=== PATIENT | female | born 1995 | race Caucasian/White ===

== ENCOUNTER 2024-12-05 13:16 | Observation (INO) ==
[2024-12-05 13:53] LABS: BASOPHILS % (AUTO) 0.5 % (0.2-1.0); EOSINOPHILS # (AUTO) 0.2 x10^3/uL (0.0-0.2); EOSINOPHILS % (AUTO) 1.6 % (0.9-2.9); HEMATOCRIT 38.9 % (36.0-47.0); HEMOGLOBIN 13.4 g/dL (12.0-16.0); LYMPHOCYTES # (AUTO) 2.4 X10^3/uL (1.3-2.9); LYMPHOCYTES % (AUTO) 24.8 % (21.0-51.0); MEAN CORPUSCULAR HEMOGLOBIN 29.9 pg (27.0-34.0); MEAN CORPUSCULAR HGB CONC 34.3 g/dL (33.0-35.0); MEAN CORPUSCULAR VOLUME 87.2 fL (80.0-100.0); MEAN PLATELET VOLUME 7.4 fL (7.4-11.0); MONOCYTES # (AUTO) 0.7 x10^3/uL (0.3-0.8); MONOCYTES % (AUTO) 7.6 % (0.0-13.0); NEUTROPHILS # (AUTO) 6.3 x10^3/uL (2.2-4.8); NEUTROPHILS % (AUTO) 65.5 % (42.0-75.0); PLATELET COUNT 274 X10^3/uL (150.0-450.0); RED BLOOD COUNT 4.47 X10^6/uL (3.5-5.4); RED CELL DISTRIBUTION WIDTH 12.8 % (11.6-16.5); WHITE BLOOD COUNT 9.6 X10^3/uL (3.6-10.0)
[2024-12-05] MEDS: ZOFRAN INJ 4 MG VIAL IVP ONE (13:53)
[2024-12-05] MEDS: MORPHINE SULFATE INJ 4 MG IVP ONE (13:55)
[2024-12-05 14:17] LABS: SERUM PREGNANCY TEST, QUAL NEGATIVE <10 mIU/mL
[2024-12-05 14:22] LABS: ALANINE AMINOTRANSFERASE 16 Units/L (12-78); ALBUMIN 3.5 g/dL (3.4-5.0); ALKALINE PHOSPHATASE 90 Units/L (46-116); ASPARTATE AMINO TRANSFERASE 12 Units/L (15-37); BLOOD UREA NITROGEN 11 mg/dL (7-18); CALCIUM 8.8 mg/dL (8.5-10.1); CARBON DIOXIDE 25.5 mmol/L (21-32); CHLORIDE 104 mmol/L (98-107); CREATININE 0.72 mg/dL (0.55-1.02); GLUCOSE 109 mg/dL (65-99); LIPASE 28 Units/L (16-77); POTASSIUM 3.2 mmol/L (3.5-5.1); SODIUM 139 mmol/L (136-145); TOTAL PROTEIN 7.2 g/dL (6.4-8.2); eGFR NON BLACK RACES > 60 (>60)
--- NOTE | 2024-12-05 14:35 | VAS ---
EXAM:UPPER EXT VENOUS, UNILATERALHISTORY:LEFT UPPER EXTREMITY PAIN;COMPARISON:None.TECHNIQUE:Left upper extremity venous Doppler ultrasound was performed using grayscale and color Doppler imaging with compression and augmentation techniques.FINDINGS:There is normal color Doppler flow within the internal jugular, subclavian, axillary, brachial, radial and ulnar vein segments. The deep vessels augment and compress normally, where appropriate. There is no DVT identified.IMPRESSION:No evidence of DVT.THIS IS AN ELECTRONICALLY VERIFIED FINAL REPORT12/05/2024 2:32 PM - Electronically signed by Jonathon Blum MD
[2024-12-05 14:53] LABS: BILIRUBIN,URINE NEGATIVE (NEGATIVE); BLOOD/HEMOGLOBIN,URINE NEGATIVE (NEGATIVE); GLUCOSE, URINE NEGATIVE (NEGATIVE); KETONES,URINE NEGATIVE (NEGATIVE); LEUKOCYTE ESTERASE ,URINE 1+ (NEGATIVE); NITRITES,URINE NEGATIVE (NEGATIVE); PROTEIN,URINE 2+ (NEGATIVE); UROBILINOGEN,URINE NORMAL (NORMAL)
--- NOTE | 2024-12-05 15:06 | CT ---
EXAMINATION:ABDOMEN/PELVIS W/O CONHISTORY:RUQ PAIN, RT FLANK PAIN;COMPARISON:None.TECHNIQUE:Contiguou s noncontrast axial CT images of the abdomen and pelvis. Images reviewed in the axial imaging plane with reformatted sagittal and coronal images.The above CT scan was done with automated exposure control and the mA and kV was adjusted to obtain quality images according to patient size.FINDINGS:The exam is limited for evaluating the organs of the abdomen and pelvis since intravenous and oral contrast were not used.The liver is enlarged measuring 22.4 by 18 by 15 cm. No focal liver lesions seen.Gallbladder minimally distended. Subtle mixed density in the gallbladder may represent biliary sludge which may be followed up with biliary ultrasound.Pancreas, spleen, adrenal glands appear intact.Kidneys normal size and position. No hydronephrosis.The abdominal aorta tapers normally.Details of the GI tract are limited since oral contrast was not used. Occasional colonic diverticuli. [id number] amount of feces. No evidence of appendicitis. Stomach contains a small amount of air and food.Urinary bladder mildly distended with urine. Uterus and adnexal regions appear intact.Osseous structures appear intact. Pulmonary bases are clear.IMPRESSION:Mild hepatomegaly.No evidence of bowel obstruction.Equivocal biliary sludge within the gallbladder which may be further assessed with a gallbladder ultrasound.No hydronephrosis.THIS IS AN ELECTRONICALLY VERIFIED FINAL REPORT12/05/2024 3:03 PM - Electronically signed by Prisca Arriaga MD
[2024-12-05 15:09] LABS: APPEARANCE,URINE SLIGHTLY HAZY (CLEAR); COLOR,URINE YELLOW (YELLOW)
[2024-12-05 15:10] LABS: BACTERIA,URINE TRACE /HPF (NEGATIVE); RBC,URINE 0-2 /HPF (0-3); SQUAMOUS EPITHELIAL CELL,UR MANY /HPF (NEGATIVE)
--- NOTE | 2024-12-05 15:51 | ED.ABDFE ---
HPI Time Seen Time Seen by Provider: 12/05/24 13:32 PCP Primary Care Physician: Carlos Cavazos Complaint Doctors Chief Complaint Comments: 29 yo F, hx of kidney stones, pre-DM, hyperlipidemia, hypothyroidism, c/o 4 days of n/v & R mid abd pain, markedly worse the past 18h. Denies other complaints. Denies fever. Denies diarrhea. Chief Complaint:: patient reports vomiting since Tuesday along with headache. reports right sided abd pain that started today. COVID-19 Coronavirus risk:travel/contact w/high risk person: No Has patient experienced Coronavirus symptoms: No Source History Provided: Patient Mode of arrival Mode of Arrival: Ambulatory Timing Onset of Chief Complaint: 12/02/24 PMH PMH Past Medical History: Yes Past Medical History: Anxiety, Asthma, Depression, Diabetes (Pre-DM), Dyslipidemia, Hypertension and Hypothyroidism Past Medical History Comment: tachycardia Past Surgical History: Yes Surgical History: Tonsillectomy Family History History of Family Medical Conditions: Yes Family Medical History: Diabetes Mellitus, Coronary Artery Disease and Heart Failure Social History Type of Tobacco Use: None Alcohol Use: None Do you use any recreational Drugs:: No Lives With: Spouse Lives Where: Home Travel Risk Coronavirus risk:travel/contact w/high risk person: No Has patient experienced Coronavirus symptoms: No Infectious screening Have you traveled outside the country in the last 6 months?: No Isolation: Standard ROS Review of Systems Constitutional: negative Fever Gastrointestinal/Abdominal: Abdominal Pain, Nausea and Vomiting; negative Diarrhea All Other Systems: Reviewed and Negative PE Vital Signs Vitals: Vital Signs Temperature 97.7 F Pulse Rate 94 Respiratory Rate 22 Respiratory Rate 22 Blood Pressure 143/91 O2 Sat by Pulse Oximetry 100 General Limitations: No Limitations and Language Barrier General Appearance: Alert and In No Apparent Distress Head Head Exam: Normal Inspection Eyes Eye exam: Normal Appearance ENT ENT Exam: Normal Exam Neck Neck Exam: Normal Inspection Chest Chest Inspection: Normal Inspection Respiratory Respiratory Exam: Normal Lung Sounds Bilat Cardiovascular Cardiovascular Exam: Regular Rate and Normal Rhythm Abdominal Exam Abdominal Exam: Soft and Tenderness (RUQ); negative Guarding, Rebound or Rigidity Abdominal Tenderness: RUQ Rectal Rectal Exam: Deferred Back Back Exam: Normal Inspection Extremeties Extremities Exam: Normal Inspection Neurologic Neurological Exam: Alert and Oriented X3 Psychiatric Psychiatric Exam: Normal Affect and Normal Mood Skin Skin Exam: Warm, Dry and Intact ROR Labs Reviewed 12/05/24 13:43 12/05/24 13:43 Laboratory: WBC 9.6 X10^3/uL (3.6-10.0) 12/05/24 13:43 RBC 4.47 X10^6/uL (3.5-5.4) 12/05/24 13:43 Hgb 13.4 g/dL (12.0-16.0) 12/05/24 13:43 Hct 38.9 % (36.0-47.0) 12/05/24 13:43 MCV 87.2 fL (80.0-100.0) 12/05/24 13:43 MCH 29.9 pg (27.0-34.0) 12/05/24 13:43 MCHC 34.3 g/dL (33.0-35.0) 12/05/24 13:43 RDW 12.8 % (11.6-16.5) 12/05/24 13:43 Plt Count 274 X10^3/uL (150.0-450.0) 12/05/24 13:43 MPV 7.4 fL (7.4-11.0) 12/05/24 13:43 Neut % (Auto) 65.5 % (42.0-75.0) 12/05/24 13:43 Lymph % (Auto) 24.8 % (21.0-51.0) 12/05/24 13:43 [place] % (Auto) 7.6 % (0.0-13.0) 12/05/24 13:43 Eos % (Auto) 1.6 % (0.9-2.9) 12/05/24 13:43 Baso % (Auto) 0.5 % (0.2-1.0) 12/05/24 13:43 Neut # (Auto) 6.3 x10^3/uL (2.2-4.8) H 12/05/24 13:43 Lymph # (Auto) 2.4 X10^3/uL (1.3-2.9) 12/05/24 13:43 [place] # (Auto) 0.7 x10^3/uL (0.3-0.8) 12/05/24 13:43 Eos # (Auto) 0.2 x10^3/uL (0.0-0.2) 12/05/24 13:43 Baso # (Auto) 0.0 X10^3/uL (0.0-0.1) 12/05/24 13:43 Absolute Nucleated RBC 0.0 /100WBC 12/05/24 13:43 Sodium 139 mmol/L (136-145) 12/05/24 13:43 Corrected Sodium TNP 12/05/24 13:43 Potassium 3.2 mmol/L (3.5-5.1) L 12/05/24 13:43 Chloride 104 mmol/L (98-107) 12/05/24 13:43 Carbon Dioxide 25.5 mmol/L (21-32) 12/05/24 13:43 BUN 11 mg/dL (7-18) 12/05/24 13:43 Creatinine 0.72 mg/dL (0.55-1.02) 12/05/24 13:43 Est GFR (MDRD) Af Amer > 60 (>60) 12/05/24 13:43 Est GFR (MDRD) Non-Af > 60 (>60) 12/05/24 13:43 Glucose 109 mg/dL (65-99) H 12/05/24 13:43 Calcium 8.8 mg/dL (8.5-10.1) 12/05/24 13:43 Corrected Calcium TNP 12/05/24 13:43 Total Bilirubin 0.30 mg/dL (0.2-1.0) 12/05/24 13:43 AST 12 Units/L (15-37) L 12/05/24 13:43 ALT 16 Units/L (12-78) 12/05/24 13:43 Alkaline Phosphatase 90 Units/L (46-116) 12/05/24 13:43 Total Protein 7.2 g/dL (6.4-8.2) 12/05/24 13:43 Albumin 3.5 g/dL (3.4-5.0) 12/05/24 13:43 Globulin 3.7 g/dL (2.5-4.5) 12/05/24 13:43 Albumin/Globulin Ratio 0.9 Ratio (1.1-2.1) L 12/05/24 13:43 Lipase 28 Units/L (16-77) 12/05/24 13:43 HCG, Qual Negative <10 mIU/mL 12/05/24 13:43 Specimen Type Clean catch urine 12/05/24 14:32 Urine Color Yellow (YELLOW) 12/05/24 14:32 Urine Appearance Slightly hazy (CLEAR) 12/05/24 14:32 Urine pH 6.0 (5.0 - 8.0) 12/05/24 14:32 Ur Specific [place] 1.030 (1.000-1.030) 12/05/24 14:32 Urine Protein 2+ (NEGATIVE) 12/05/24 14:32 Urine Glucose (UA) Negative (NEGATIVE) 12/05/24 14:32 Urine Ketones Negative (NEGATIVE) 12/05/24 14:32 Urine Blood Negative (NEGATIVE) 12/05/24 14:32 Urine Nitrite Negative (NEGATIVE) 12/05/24 14:32 Urine Bilirubin Negative (NEGATIVE) 12/05/24 14:32 Urine Urobilinogen Normal (NORMAL) 12/05/24 14:32 Ur Leukocyte Esterase 1+ (NEGATIVE) 12/05/24 14:32 Urine RBC 0-2 /HPF (0-3) 12/05/24 14:32 Urine WBC 3-5 /HPF (0-5) 12/05/24 14:32 Ur Squamous Epith Cells Many /HPF (NEGATIVE) 12/05/24 14:32 Urine Bacteria Trace /HPF (NEGATIVE) 12/05/24 14:32 Urine Mucus Many /HPF (NEGATIVE) 12/05/24 14:32 Ur Culture Indicated? No/not indicated 12/05/24 14:32 Opioid Opioid Risk Tool Age (Jayson box if 16-45): Yes History of Preadolescent Sexual Abuse: No Total: 1 Total Score Risk Category: Low Risk Copyright: Hussein VO predicting aberrant behaviors Discharge Plan Diagnosis Discharge Problem: Biliary colic Discharge Plan Condition: Stable Prescriptions: New hydrocodone-acetaminophen 5-325 mg tablet 1 tab PO Q8H MDD 3 tabs PRN (Reason: pain) Qty: 12 0RF ondansetron 4 mg tablet,disintegrating 4 mg PO Q6H PRNQty: 20 0RF Health Concerns: Post Hospitalization: new medications and changes needed to prevent readmission or further decline. Pt educated and given instructions on all concerns. Plan of Treatment: Continue with present treatment and follow up plan. Pt is to keep follow up appointment as instructed and take medications as ordered. Orders to Discharge Patient Discharge Orders: Discharge (Routine); Ordered 12/05/24 Ordered By: Donnell Simms Follow ups/Referrals Follow ups/Referrals: CARLOS BARTON [Primary Care Provider] - 3 days Instructions Stand Alone Forms: Find Help Web Site, Post Hospital Follow Up Care
--- NOTE | 2024-12-05 17:32 | US ---
EXAM: RIGHT UPPER QUADRANT ULTRASOUND HISTORY: cholecystitis; cholecystitis COMPARISON: None. TECHNIQUE: 44 images were provided for interpretation. FINDINGS: Liver: No intrahepatic focal lesions are seen. No evidence of intrahepatic biliary dilation. The karla er measures 15.8 cm. CBD: The common bile duct size measures 4 mm which is considered within normal limits. Gallbladder: The gallbladder is sonographically unremarkable. There are no gallstones, gallbladder wa ll thickening, or pericholecystic fluid seen. Right kidney measures 10.5 x 4.5 x 4.8 cm and is unremarkable. IMPRESSION: There is no evidence of acute gallbladder disease. The common bile duct size measures 4 mm. THIS IS AN ELECTRONICALLY VERIFIED FINAL REPORT 12/05/2024 5:29 PM - Electronically signed by Conrad Do MD
[2024-12-05] MEDS ORDERED: MORPHINE SULFATE INJ 2 MG INJ IVP PRN (18:33)
[2024-12-05] MEDS ORDERED: ZOFRAN INJ 4 MG VIAL IVP PRN (18:33)
[2024-12-05] MEDS: D5 1/2 NS 1,000 ML 1,000 ML IV SCH (19:10)
[2024-12-05 20:47] VITALS: BMI 32.5
[2024-12-06 05:49] LABS: BASOPHILS % (AUTO) 0.7 % (0.2-1.0); EOSINOPHILS # (AUTO) 0.2 x10^3/uL (0.0-0.2); EOSINOPHILS % (AUTO) 2.4 % (0.9-2.9); HEMATOCRIT 37.7 % (36.0-47.0); HEMOGLOBIN 12.9 g/dL (12.0-16.0); LYMPHOCYTES # (AUTO) 2.9 X10^3/uL (1.3-2.9); MEAN CORPUSCULAR HEMOGLOBIN 29.9 pg (27.0-34.0); MEAN CORPUSCULAR HGB CONC 34.2 g/dL (33.0-35.0); MEAN CORPUSCULAR VOLUME 87.6 fL (80.0-100.0); MEAN PLATELET VOLUME 7.7 fL (7.4-11.0); MONOCYTES # (AUTO) 0.7 x10^3/uL (0.3-0.8); MONOCYTES % (AUTO) 10.9 % (0.0-13.0); NEUTROPHILS # (AUTO) 2.9 x10^3/uL (2.2-4.8); PLATELET COUNT 271 X10^3/uL (150.0-450.0); WHITE BLOOD COUNT 6.7 X10^3/uL (3.6-10.0)
[2024-12-06 06:17] LABS: ALANINE AMINOTRANSFERASE 15 Units/L (12-78); ALKALINE PHOSPHATASE 84 Units/L (46-116); ASPARTATE AMINO TRANSFERASE 10 Units/L (15-37); BLOOD UREA NITROGEN 7 mg/dL (7-18); CALCIUM 8.6 mg/dL (8.5-10.1); CARBON DIOXIDE 25.5 mmol/L (21-32); CHLORIDE 106 mmol/L (98-107); COR CA(FOR HYPOALB) 9.4 mg/dL (8.5-10.1); COR NA(FOR HYPERGLY) 140 mmol/L (136-145); CREATININE 0.62 mg/dL (0.55-1.02); GLUCOSE 125 mg/dL (65-99); MAGNESIUM 1.7 mg/dL (2.0-2.9); POTASSIUM 3.7 mmol/L (3.5-5.1); SODIUM 139 mmol/L (136-145); TOTAL PROTEIN 6.4 g/dL (6.4-8.2); eGFR NON BLACK RACES > 60 (>60)
[2024-12-06] MEDS ORDERED: CONSULT PHARMACY - POTASSIUM & MAGNESIUM XX SCH (08:00)
[2024-12-06] MEDS: K-RIDER 10 MEQ/100 ML WATER 10 MEQ/100 ML BAG IV SCH (09:10)
[2024-12-06] MEDS: DIPRIVAN VIAL 0 ML ONE (13:07)
[2024-12-06] MEDS: NS 1,000 ML IV 1,000 ML ONE (13:20)
[2024-12-06] MEDS: NS 1,000 ML IV 0 ML IV PRN (13:21)
[2024-12-06] MEDS: DIPRIVAN VIAL 180 ML IVP PRN (13:23)
[2024-12-06] MEDS ORDERED: XYLOCAINE 2 % (PLAIN) PRN (13:23)
[2024-12-06] MEDS: KLOR-CON 10 MEQ TAB PO SCH (18:03)
[2024-12-06] MEDS: DIPRIVAN VIAL 20 ML ONE (21:34)
[2024-12-06] MEDS: HIBICLENS WASH EXT ONE (23:53)
[2024-12-07 04:44] VITALS: O2SAT 97
[2024-12-07 05:56] LABS: BASOPHILS % (AUTO) 0.3 % (0.2-1.0); EOSINOPHILS # (AUTO) 0.2 x10^3/uL (0.0-0.2); HEMATOCRIT 36.7 % (36.0-47.0); HEMOGLOBIN 12.3 g/dL (12.0-16.0); LYMPHOCYTES # (AUTO) 2.6 X10^3/uL (1.3-2.9); LYMPHOCYTES % (AUTO) 28.4 % (21.0-51.0); MEAN CORPUSCULAR HEMOGLOBIN 29.5 pg (27.0-34.0); MEAN CORPUSCULAR HGB CONC 33.5 g/dL (33.0-35.0); MONOCYTES # (AUTO) 0.9 x10^3/uL (0.3-0.8); MONOCYTES % (AUTO) 9.2 % (0.0-13.0); NEUTROPHILS # (AUTO) 5.6 x10^3/uL (2.2-4.8); NEUTROPHILS % (AUTO) 60.1 % (42.0-75.0); PLATELET COUNT 239 X10^3/uL (150.0-450.0); RED BLOOD COUNT 4.17 X10^6/uL (3.5-5.4); RED CELL DISTRIBUTION WIDTH 12.8 % (11.6-16.5); WHITE BLOOD COUNT 9.3 X10^3/uL (3.6-10.0)
[2024-12-07 06:05] LABS: ALANINE AMINOTRANSFERASE 21 Units/L (12-78); ALKALINE PHOSPHATASE 82 Units/L (46-116); ASPARTATE AMINO TRANSFERASE 15 Units/L (15-37); BLOOD UREA NITROGEN 5 mg/dL (7-18); CALCIUM 8.6 mg/dL (8.5-10.1); CARBON DIOXIDE 24.5 mmol/L (21-32); CHLORIDE 107 mmol/L (98-107); COR CA(FOR HYPOALB) 9.4 mg/dL (8.5-10.1); COR NA(FOR HYPERGLY) 141 mmol/L (136-145); CREATININE 0.63 mg/dL (0.55-1.02); GLUCOSE 117 mg/dL (65-99); POTASSIUM 3.7 mmol/L (3.5-5.1); SODIUM 141 mmol/L (136-145); TOTAL PROTEIN 6.4 g/dL (6.4-8.2); eGFR NON BLACK RACES > 60 (>60)
[2024-12-07] MEDS ORDERED: CONSULT PHARMACY - POTASSIUM & MAGNESIUM XX SCH (07:00)
[2024-12-07 07:47] VITALS: BP 110/67; PULSE 92; RESP 20; TEMP 98.3
[2024-12-07] MEDS: K-RIDER 10 MEQ/100 ML WATER 10 MEQ/100 ML BAG IV SCH (09:09)
[2024-12-07] MEDS ORDERED: KINEVAC ONE (10:03)
[2024-12-07] MEDS ORDERED: NS ONE (10:03)
[2024-12-07] MEDS ORDERED: NS IV ONE (11:00)
[2024-12-07] MEDS ORDERED: KINEVAC IV ONE (11:00)
--- NOTE | 2024-12-07 13:48 | NM ---
EXAM: HIDA/HEPATOBILIARY SCAN W/EF HISTORY: abd pain/nausea; 6.4 mCi 99mTc Mebrofenin1.7mcg KINEVAC COMPARISON: CT abdomen and pelvis 12/05/2024 TECHNIQUE: 6.4 mCi Tc-99m mebrofenin were injected intravenously. Planar images were obtained for 90 minutes. FINDINGS: There was prompt uptake and excretion by the liver. Activity is seen in the gallbladder by 9 minutes with no evidence of cystic duct obstruction. Activity is seen in the small bowel at 28 minutes with no evidence of common bile duct obstruction. At 60 minutes, the technologist injected 1.7 mcg of cholecystokinin. Gallbladder ejection fraction w as calculated at 58. Normal gallbladder ejection fraction is about 35-80%. But there is activity noted in the upper left abdomen suggesting gastric lumen. This might indicate a bile reflux gastritis. IMPRESSION: 1. No evidence for cystic or common duct obstruction 2. No evidence for cholecystitis 3. Findings suggesting bile reflux gastritis THIS IS AN ELECTRONICALLY VERIFIED FINAL REPORT 12/07/2024 1:29 PM - Electronically signed by Cyril Major MD
== END 2024-12-07 13:45 | disposition home or self-care (01) ==
LOC: ER 13:16 → MED/SURG 13:16 → ER 15:59 → MED/SURG 18:33
PROVIDERS: ADMIT Surgery; ATTEND Surgery
DX: E87.6 Hypokalemia; K44.9 Diaphragmatic hernia without obstruction or gangrene; E03.8 Other specified hypothyroidism; F41.8 Other specified anxiety disorders; R10.84 Generalized abdominal pain; R10.11 Right upper quadrant pain; K21.00 Gastro-esophageal reflux disease with esophagitis, without bleeding; R11.2 Nausea with vomiting, unspecified; K29.00 Acute gastritis without bleeding; E13.65 Other specified diabetes mellitus with hyperglycemia; Z87.442 Personal history of urinary calculi; K80.50 Calculus of bile duct without cholangitis or cholecystitis without obstruction; R51.9 Headache, unspecified; E78.5 Hyperlipidemia, unspecified